=== PATIENT | female | born 1995 ===

== ENCOUNTER 2021-07-26 00:17 | Inpatient (IN) | payer BC ==
[~2021-07-26 00:17] MED LIST: Butorphanol 1 MG/ML SDV IVPUSH PRN; Carboprost Tromethamine 250 MCG/1 ML Amp IM PRN; Lidocaine 1% 50 ML MDV INJECT PRN; Methylergonovine 0.2 MG/1 ML Amp IM PRN; Misoprostol 200 MCG Tab PO PRN; Oxytocin/0.9 % Sodium Chloride 30 UNIT/500 ML BAG IV SCH; Tranexamic Acid 1,000 MG in Sodium Chloride 0.9% 100 ML IV PRN; Water For Irrigation,Sterile 1,000 ML Container IRR PRN
[2021-07-26] MEDS ORDERED: Terbutaline 1 MG/ML SDV SUBCUT PRN (00:44)
[2021-07-26] MEDS ORDERED: Sodium Chloride 0.9% 2.5 ML Syringe FLUSH PRN (00:44)
[2021-07-26] MEDS ORDERED: Sodium Chloride 0.9% 10 ML Syringe FLUSH PRN (00:44)
[2021-07-26] MEDS ORDERED: Ondansetron 4 MG/2 ML SDV IVPUSH PRN (00:44)
[2021-07-26] MEDS ORDERED: Sodium Chloride 0.9% 20 ML SDV IV PRN (00:44)
[2021-07-26] MEDS ORDERED: Misoprostol 25 MCG (1/4 of 100 MCG) Tab VAG PRN ×2 (00:44)
[2021-07-26] MEDS ORDERED: Oxytocin/0.9 % Sodium Chloride 30 UNIT/500 ML BAG IV SCH (00:45)
[2021-07-26] MEDS: Lactated Ringers 1,000 ML IV SCH ×3 (03:22→10:31)
[2021-07-26] MEDS ORDERED: ePHEDrine 50 MG/ML SDV IVPUSH PRN ×2 (04:50)
[2021-07-26] MEDS ORDERED: Ropivacaine HCl/PF 200 MG in Premix Bag 1 BAG EPIDUR SCH (05:00)
[2021-07-26] MEDS ORDERED: Ropivacaine 200 MG in Premix Bag 1 BAG EPIDUR SCH (05:00)
[2021-07-26] MEDS ORDERED: Docusate Sodium 100 MG Cap PO PRN (13:10)
[2021-07-26] MEDS ORDERED: Lanolin 100% Cream 7 GM Tube TOP PRN (13:10)
[2021-07-26] MEDS ORDERED: Acetaminophen 500 MG Tab PO PRN (13:10)
[2021-07-26] MEDS ORDERED: Bisacodyl 10 MG Supp RECTAL PRN (13:10)
[2021-07-26] MEDS ORDERED: Ibuprofen 400 MG Tab PO PRN (13:10)
[2021-07-26] MEDS ORDERED: oxyCODONE 5 MG Tab PO PRN (13:10)
[2021-07-26] MEDS ORDERED: Benzocaine/Menthol 20%-0.5% Spray 78 GM Cannister TOP PRN (13:10)
[2021-07-26] MEDS: Ibuprofen 800 MG Tab PO PRN (17:01)
[2021-07-26] MEDS: Acetaminophen 500 MG Tab PO PRN (21:11)
[2021-07-27] MEDS: Ibuprofen 800 MG Tab PO PRN ×3 (03:27→15:19)
[2021-07-27] MEDS: Witch Hazel Medicated Pads 40/Jar TOP PRN (08:34)
[2021-07-27] MEDS: Acetaminophen 500 MG Tab PO PRN ×2 (10:10→22:45)
[2021-07-28] MEDS: Ibuprofen 800 MG Tab PO PRN (00:11)
[2021-07-28] MEDS: Witch Hazel Medicated Pads 40/Jar TOP PRN (08:26)
== END 2021-07-28 10:10 | disposition home or self-care (01) | DRG 560 ==
LOC: MW.OBCHECK 00:17 → MW.OB 01:09 → OBSVTOIN 12:55 → MW.OB 17:30
PROVIDERS: ADMIT Obstetrics & Gynecology; ATTEND Obstetrics & Gynecology
PROC: 10E0XZZ Delivery of Products of Conception, External Approach (ICD-10-PCS; principal; 2021-07-26)
PROC: 3E0P7VZ Introduction of Hormone into Female Reproductive, Via Natural or Artificial Opening (ICD-10-PCS; 2021-07-26)
PROC: 3E0R3BZ Introduction of Anesthetic Agent into Spinal Canal, Percutaneous Approach (ICD-10-PCS; 2021-07-26)
PROC: 00HU33Z Insertion of Infusion Device into Spinal Canal, Percutaneous Approach (ICD-10-PCS; 2021-07-26)
DX: O80 Encounter for full-term uncomplicated delivery (principal); Z37.0 Single live birth; Z3A.39 39 weeks gestation of pregnancy; Z20.822 Contact with and (suspected) exposure to COVID-19
CPT/HCPCS: 01967; 36415; 51702; 59025; 59409; 82803; 85014; 85018; 85027; 86592; 86850; 86900; 86901; A9270-GY; J0595; J2590; J7120; U0002